=== PATIENT | male | born 1945 | race Caucasian/White ===

== ENCOUNTER → 2022-04-02 15:50 | Outpatient (CLI) | payer MEDICARE, SELFPAY ==
--- NOTE | 2022-04-02 15:55 | DI.US.S_ITS ---
PROCEDURE: US CAROTID DOPPLER BI INDICATIONS: Unspecified visual loss TECHNIQUE: Color and pulse Doppler interrogation was performed of both carotid systems, with image documentation and velocity measurements. COMPARISON: [facility], , CAROTID ARTERY DOPPLER BILAT, 06/18/2013, 8:26. FINDINGS: Stenosis calculations are based on SRU (Society of Radiologists in Ultrasound) criteria. Right side: Common carotid artery peak systolic velocity: 81 cm/sec. Internal carotid artery peak systolic velocity: 241 cm/sec. Internal carotid artery end diastolic velocity: 54 cm/sec. External carotid artery peak systolic velocity: 125 cm/sec. ICA/CCA peak systolic ratio: 3.0 . Elizabeth scale imaging description: Moderate plaque. Percent internal carotid artery stenosis: Greater than 70% . Vertebral artery: Flow direction is antegrade. Flow within the mid internal carotid artery appears retrograde. Possible bidirectional flow at the proximal ICA. Left side: Common carotid artery peak systolic velocity: 102 cm/sec. Internal carotid artery peak systolic velocity: 150 cm/sec. Internal carotid artery end diastolic velocity: 25 cm/sec. External carotid artery peak systolic velocity: 159 cm/sec. ICA/CCA peak systolic ratio: 1.5 . Elizabeth scale imaging description: Moderate plaque Percent internal carotid artery stenosis: 50-69% . Vertebral artery: Flow direction is antegrade. IMPRESSION: 1. Peak systolic velocity in the right internal carotid artery is consistent with greater than 70% stenosis. 2. Peak systolic velocity in the left internal carotid artery is consistent with 50-69% stenosis. 3. Flow within both vertebral arteries is antegrade. 4. Flow in the right mid internal carotid artery is retrograde. Dictated by: Feliciano Arriaga M.D. on 04/02/2022 at 18:17 Approved by: Feliciano Arriaga M.D. on 04/02/2022 at 18:24
--- NOTE | 2022-04-02 15:56 | DI.MRI.S_ITS ---
PROCEDURE: MR STROKE Pre- and post-contrast brain MRI, non-contrast brain MR angiogram, pre- and postcontrast neck MR angiogram INDICATIONS: Unspecified visual loss TECHNIQUE: Brain: Noncontrast axial T1 spin echo, axial T2 fast spin echo, sagittal and axial FLAIR, coronal T2 fast spin echo, axial gradient echo, axial diffusion and ADC through the brain. After the administration of contrast, axial 3D VIBE of the cranial vasculature and brain. Brain MRA: Non-contrast 3-D time of flight MR angiogram, with multiple yoovqgw-loetcqimr-qzocsiqneo (MIP) reformats performed. Neck MRA: Axial and sagittal TruFISP through the neck. Coronal dynamic MR angiogram during administration of contrast in the arterial and venous phases, with 3-dimenstional maziubs-ldqdrmrez-kvztyqicna (MIP) reformats constructed from subtraction images. COMPARISON: [facility], , CAROTID DOPPLER BI, 04/02/2022, 16:19. FINDINGS: Image quality: Excellent. BRAIN: CSF spaces: Ventricles are normal in size and shape. Basal cisterns are patent. No extra-axial fluid collections. Brain: No intracranial bleeds or mass effects. Elizabeth-white matter interface is normal. Diffusion weighted images show no acute ischemic insults. Brainstem appears normal. Normal intravascular flow voids are present. No abnormal intracranial enhancement. Note is made of age-appropriate brain parenchymal volume loss and chronic small vessel ischemic changes. Skull and face: Calvarial marrow signal is normal. Orbits appear normal. Sinuses: There is a mucous retention cyst seen involving the posterior left maxillary sinus. The paranasal sinuses otherwise are unremarkable. No abnormal fluid is seen within the mastoid air cells. BRAIN MR ANGIOGRAM: Anterior circulation: Intracranial internal carotid arteries are normal in size and enhancement. There is a diminutive right A1 segment, with a corresponding robust left A1 segment. This is considered to be a normal developmental variant of the [place] of [place], of typically no clinical consequence. The flow within the paired anterior cerebral arteries is otherwise normal and symmetric. The flow within the middle cerebral arteries is normal and symmetric. The anterior communicating artery is seen. No stenoses, occlusions, or aneurysms. Posterior circulation: The visualized portions of the vertebral arteries demonstrate normal caliber, and join to form a normal appearing basilar artery. The flow within the posterior cerebral arteries is normal and symmetric. No stenoses, occlusions, or aneurysms. NECK MR ANGIOGRAM: Carotids: Great vessels demonstrate a conventional anatomy as they arise from the aortic arch. The origins of the common carotid arteries appear patent. The calibers and courses of both common carotid arteries are normal. The bifurcation regions demonstrate atherosclerotic irregularity. There is near complete occlusion seen of the right proximal internal carotid artery. No significant left internal carotid artery stenosis can be seen. The more distal internal carotid arteries demonstrate normal course and caliber. Posterior circulation: The origins of the vertebral arteries appear patent. More superior portions of both vertebral arteries demonstrate normal course and caliber, and join to form a normal appearing basilar artery. Miscellaneous: Subclavian arteries appear patent. Pre-contrast images through the neck show no soft tissue abnormalities. IMPRESSION: BRAIN MRI: No findings of acute or subacute infarction can be seen. BRAIN MR ANGIOGRAM: No significant intracranial arterial abnormality is seen. Jkjgvm-cf-[id number] developmental anomalies are incidentally noted. NECK MR ANGIOGRAM: Near complete occlusion of the right proximal internal carotid artery, which correlates well with elevated flow velocity at this site on the accompanying carotid Doppler ultrasound. - Vascular surgery/interventional radiology consultation is recommended. Dictated by: Jacky Alejandre M.D. on 04/02/2022 at 17:04 Approved by: Jacky Alejandre M.D. on 04/02/2022 at 17:08
== END ==
PROVIDERS: PCP Family Medicine; Referring Provider Family Medicine; Visit Provider Family Medicine
DX: I65.23 Occlusion and stenosis of bilateral carotid arteries (principal); H54.7 Unspecified visual loss
CPT/HCPCS: 70548; 70553; 93880; A9579